=== PATIENT | male | born 1960 | race Caucasian/White ===

== ENCOUNTER → 2021-10-12 | Day surgery (SDC) | payer MEDICARE, MEDICAID ==
[~2021-10-12] VITALS: Ht 175.3 cm; Wt 133.8 kg
[~2021-10-12] MED LIST: BUPIVACAINE HCL/PF 0.5% (5MG/ML) 30ML ONE; LIDOCAINE HCL 1% 10 MG/ML 10ML VIAL ONE; POLYMYXIN B SULFATE 500000 UNITS/VIAL ONE
== END | disposition home or self-care (01) ==
LOC: OR 07:27
PROVIDERS: ATTEND Specialist
DX: K64.8 Other hemorrhoids (principal); Z20.822 Contact with and (suspected) exposure to COVID-19
CPT/HCPCS: 87426; J3490